=== PATIENT | female | born 2000 | race American Indian/Alaskan Native ===

== ENCOUNTER 2021-04-02 06:10 | Emergency (ER) | payer OTHER, MEDICAID, MEDICARE | END 2021-04-02 10:15 | disposition home or self-care (01) | LOC: ED 06:10 | CPT/HCPCS: 36415; 71046; 80053; 81001; 83690; 84484; 84703; 85025; 85379; 93005; 94640; 99284; J7512; 94644 ==

== ENCOUNTER 2022-06-08 20:30 | Emergency (ER) | payer MEDICAID, MEDICARE, OTHER ==
[2022-06-08 23:20] VITALS: BP 117/74
== END 2022-06-09 07:00 | disposition left against medical advice (07) ==
LOC: ED 20:30
DX: N39.0 Urinary tract infection, site not specified (principal); Z53.21 Procedure and treatment not carried out due to patient leaving prior to being seen by health care provider